=== PATIENT | female | born 1985 | race Asian ===

== ENCOUNTER → 2018-02-08 | Outpatient (CLI) | payer OTHER ==
--- NOTE | 2018-02-08 14:07 | RADIOLOGY IMAGING REPORT ---
FACILITY: [facility] - [place] PATIENT NAME: Rosi Ge : 1985 MR: [id number] V: [id number] EXAM DATE: ORDERING PHYSICIAN: DEUCE ROBERTO TECHNOLOGIST: Location: [facility] - [place] Patient: Rosi Ge : 1985 Visit/Account:[id number] Date of Sevice: 02/08/2018 Exam type: CHEST PA AND LAT History: Positive TB test with cough Comparison: October 27, 2013 Findings: The lungs are free of acute effusions, infiltrates or edema. No cavitary lesions are seen. The card iac silhouette is normal in size. The trachea is in midline.. IMPRESSION: 1. No acute cardiac pulmonary process is seen. Specifically no chest radiographic evidence of activ e tuberculosis. Report Dictated By: Kriss Montesinos MD at 02/08/2018 2:00 PM Report E-Signed By: Kriss Montesinos MD at 02/08/2018 2:02 PM WSN:[id number]
== END ==
LOC: RAD 13:21
PROVIDERS: ATTEND Family Medicine
DX: R76.11 Nonspecific reaction to tuberculin skin test without active tuberculosis (principal)
CPT/HCPCS: 71046